=== PATIENT | female | born 1975 | race Caucasian/White ===

== ENCOUNTER 2025-04-02 12:23 | Emergency (ER) | payer SELFPAY ==
[~2025-04-02] VITALS: Ht 160 cm; Wt 61.2 kg
--- NOTE | 2025-04-02 12:35 | ERN ---
ED Note History of Present Illness Stated Complaint: WRIST PAIN Chief Complaint: Wrist Pain/Injury Time Seen by MD: 12:27 Dictation: PATIENT IS A 50-YEAR-OLD FEMALE COMING IN TODAY WITH COMPLAINTS OF LEFT WRIST PAIN STATUS POST A SAME LEVEL FALL ON January ON-CALL. SHE STATES SHE DID NOT GO TO THE DOCTOR AT THAT TIME SHE DID NOT GO TO A HOSPITAL. SHE HAS A AN PRECIOUS WRAP TO HER LEFT WRIST PROVIDED [id number] SHE HAS NOT TAKEN ANYTHING PRIOR TO ARRIVAL FOR PAIN. SHE STATES I HOPE I DO NOT HAVE ANY TORN LIGAMENTS ON-CALL. SHE STATES THE PAIN IS WORSE WHEN SHE IS TRIES TO LIFT. NO PRIMARY CARE DOCTOR Allergies: Coded Allergies: No Known Drug Allergies (Unverified Allergy, Unknown, 04/02/25) Past Medical History Past Medical History: High Cholesterol, Hypertension, Other Additional Past Medical Hx: PULMONARY EMBOLISM Surgical History: Other Surgical History Other: TUBAL LIGATION Social History: Smokers History: Not Applicable RN Note Reviewed/Agreed w/PFSH: Yes Review of System Dictation CONSTITUTIONAL: NEGATIVE EXCEPT FOR HPI HEAD/FACE: NEGATIVE EXCEPT FOR HPI EENT: NEGATIVE EXCEPT FOR HPI RESPIRATORY: NEGATIVE EXCEPT FOR HPI GASTROINTESTINAL/ABDOMINAL: NEGATIVE EXCEPT FOR HPI GENITOURINARY: NEGATIVE EXCEPT FOR HPI MUSCULOSKELETAL: NEGATIVE EXCEPT FOR HPI CHRONIC LEFT WRIST PAIN INTEGUMENTARY: NEGATIVE EXCEPT FOR HPI NEUROLOGICAL/PSYCH: NEGATIVE EXCEPT FOR HPI HEMATOLOGIC/LYMPHATIC: NEGATIVE EXCEPT FOR HPI ALL SYSTEMS NEGATIVE, EXCEPT NOTED ABOVE. 13 POINT REVIEW OF SYSTEMS ASSESSED AND ALL NEGATIVE EXCEPT FOR ABOVE. Initial Vital Sign VS Vital Signs Date Time Temp Pulse Resp B/P (MAP) Pulse Ox O2 Delivery O2 Flow Rate FiO2 04/02/25 12:28 98.1 95 16 174/102 98 Room Air 0 Physical Exam Dictation VITAL SIGNS REVIEWED GENERAL APPEARANCE: ALERT, ORIENTED X 3, MILD ACUTE DISTRESS, WELL DEVELOPED, NOURISHED. HEAD AND FACE: NON-TRAUMATIC. EYES: PERRL, PINK CONJUNCTIVAS, EYELID NO TRAUMA, ANTERIOR CHAMBER WITH ARCUS SENILIS. EARS: PINNAS INTACT AND NO SIGNS OF TRAUMA OR ERYTHEMA EAR CANALS CLEAR AND NO DISCHARGE TM NO ERYTHEMA NOSE: NO DISCHARGE, NO BLEEDING. OROPHARYNX: MOUTH NORMAL, TONGUE PINK, PHARYNX CLEAR,NO ERYTHEMA, TONSILS NO EXUDATES, NO ABSCESSES NOTED, MUCOUS MEMBRANE MOIST NECK: SUPPLE, NON-TENDER, NO THYROMEGALY, NO MASSES, NO JVD, NO BRUITS BREAST:DEFERRED CHEST:NO TENDERNESS, NO CREPITUS, NO PARADOXICAL MOVEMENT, NO RETRACTIONS LUNGS:CLEAR, WELL-VENTILATED, SYMMETRIC, NO RALES, NO WHEEZING, NO RHONCHI, NO STRIDOR, GOOD BREATH SOUNDS BILATERALLY HEART: REGULAR RATE, REGULAR RHYTHM, NO MURMUR, NO GALLOPS VASCULAR: NO PERIPHERAL EDEMA, ABDOMEN: SOFT, POSITIVE BOWEL SOUNDS, NONDISTENDED, NO GUARDING, NONTENDER, NO REBOUND, NO MASSES NO HEPATOMEGALY, NO SPLENOMEGALY, NO REYNA'S SIGN, NO HERNIAS. RECTAL: DEFERRED GENITAL: DEFERRED NEUROLOGICAL: NORMAL SPEECH, MOTOR FUNCTION INTACT, SENSORY FUNCTION INTACT MUSCULOSKELETAL: NECK NONTENDER, FULL RANGE OF MOTION, BACK NONTENDER, FULL RANGE OF MOTION, EXTREMITIES: MILD TENDERNESS TO DISTAL LEFT WRIST DIFFUSELY. NO ERYTHEMA NO SWELLING. PRECIOUS WRAP IN PLACE [id number] FROM OUTSIDE SKIN: COLOR PINK, DRY, NO TURGOR, NO RASH, NO LACERATIONS, NO ABRASIONS, NO CONTUSIONS. LYMPHATIC: DEFERRED Results (Laboratory/Radiology) Laboratory/Radiology 1300/LEFT WRIST X-RAY DEMONSTRATES A DISTAL LEFT RADIUS FRACTURE NAVICULAR FRACTURE Labs Reviewed?: Yes ED Course ED Course Orders Procedure Category Date Status Time Wrist Comp 3+Vws Lt RAD 04/02/25 Taken 12:31 Volar Splint [email or web address] 04/02/25 In Process 12:31 Acetaminophen 500mg PHA 04/02/25 In Process Tab (Tylenol 500mg T 13:00 Current Medications Medications (Trade) Dose Ordered Sig/Sukh Route PRN Reason Start Time Stop Time Status Last Admin Dose Admin Acetaminophen (TYLenol 500MG TAB) 1,000 mg ONCE ONCE PO 04/02/25 13:00 04/02/25 13:01 04/02/25 12:58 Vital Signs Date Time Temp Pulse Resp B/P (MAP) Pulse Ox O2 Delivery O2 Flow Rate FiO2 04/02/25 12:28 98.1 95 16 174/102 98 Room Air 0 1300/PATIENT DISCHARGED HOME AFTER VOLAR SPLINT WAS PLACED BY TECH. NEUROVASCULAR CMS INTACT POST PLACEMENT PATIENT DISCHARGED HOME WITH PAIN MANAGEMENT AND REFERRAL TO ORTHOPEDIC SURGERY. Medical Decision Making MDM MEDICAL DECISION-MAKING BASED ON X-RAY OF LEFT WRIST AFTER A FALL AND PAIN MANAGEMENT. PATIENT HAS A LEFT RADIUS FRACTURE WITH A NAVICULAR FRACTURE. SPLINT WAS PLACED WITH NEUROVASCULAR CMS INTACT POST PLACEMENT IBUPROFEN FOR PAIN PATIENT REFERRED TO DR. ANGELO MATTSON DX & DISP Disposition: Discharge Departure Impression: Primary Impression: Closed left radial fracture Additional Impressions: Left carpal navicular fracture, Fall, Benign hypertension Condition: Stable Scripts Ibuprofen (Ibuprofen) 800 Mg Tablet 800 MG PO Q6H PRN for PAIN, #30 TAB Prov: EDDIE ROSA 04/02/25 Additional Instructions: FOLLOW-UP WITH PRIMARY CARE PROVIDER IN 1 TO 2 DAYS. TAKE MEDICATIONS DIRECTED HERE IN THE EMERGENCY ROOM. OKAY TO CONTINUE HOME MEDICATIONS UNLESS O THERWISE DISCUSSED DURING YOUR VISIT IN THE EMERGENCY ROOM TODAY. RETURN TO YOUR NEAREST EMERGENCY ROOM IF SYMPTOMS WORSEN OR IF THERE IS NO IMPROVEMENT. CALL 911 IF YOU NEED IMMEDIATE ASSISTANCE. TAKE TYLENOL OR MOTRIN OWYE-ADA-AVSCTBR NEEDED AND IF NO CONTRAINDICATIONS ARE PRESENT. INCREASE ORAL HYDRATION. A WOUND CULTURE OR URINE CULTURE WAS ORDERED HERE IN THE EMERGENCY ROOM DEPARTMENT PLEASE FOLLOW-UP WITH PRIMARY CARE PROVIDER AND ADVISE THEM TO GET REPEAT PORTS FROM OUR FACILITY. IF YOU HAD ANY PRECIOUS WRAP/SPLINTS THAT WERE APPLIED HERE, PLEASE DO NOT REMOVE THEM UNTIL YOU SEE YOUR PRIMARY CARE OR SPECIALTY. SPLINT AND NO WEIGHT-BEARING TO LEFT WRIST UNTIL CLEARED BY ORTHOPEDICS, CALL FOR AN APPOINTMENT TODAY. TAKE IBUPROFEN NEEDED FOR PAIN. FOLLOW UP WITH ONE OF THE DOCTORS ON THE LIST PROVIDED YOU FOR MANAGEMENT OF YOUR BLOOD PRESSURE Referrals: ANGELO MATTSON MD Time of Disposition: 13:00 I have reviewed the case, and I agree with, Diagnosis and Plan EDDIE ROSA Apr 02, 2025 12:35
--- NOTE | 2025-04-02 12:58 | NUR ---
APPLIED VOLOR SPLINT TO LT WRIS QUICK FIT, PT TOLERATED WELL
[2025-04-02 13:17] VITALS: BP 162/88; PULSE 88; RESP 16; TEMP 98; O2SAT 98
--- NOTE | 2025-04-02 13:51 | HMCIMG ---
EXAM: CR left Wrist, 4 View. CLINICAL HISTORY: WRIST PAIN STATUS POST FALL ???TWO MONTHS AGO??? COMPARISON: None provided. FINDINGS: BONES: Comminuted fracture of the distal radius with impaction There is also fracture through the waist of the scaphoid JOINTS: No dislocation. The carpal bones demonstrate normal alignment. SOFT TISSUES: The soft tissues are unremarkable. IMPRESSION: Impacted distal radius fracture Fracture through the waist of the scaphoid /[place]
== END 2025-04-02 13:18 | disposition home or self-care (01) ==
LOC: EDH 12:23
DX: S92.253A Displaced fracture of navicular [scaphoid] of unspecified foot, initial encounter for closed fracture (principal); S52.592A Other fractures of lower end of left radius, initial encounter for closed fracture; I10 Essential (primary) hypertension; E78.00 Pure hypercholesterolemia, unspecified; F17.200 Nicotine dependence, unspecified, uncomplicated; Z98.51 Tubal ligation status; W18.39XA Other fall on same level, initial encounter; Y93.89 Activity, other specified; Y92.89 Other specified places as the place of occurrence of the external cause; Y99.8 Other external cause status
CPT/HCPCS: 29125; 73110; 99283